=== PATIENT | male | born 1995 | race Caucasian/White ===

== ENCOUNTER 2023-07-16 19:04 | Emergency (ER) | payer SELFPAY ==
[2023-07-16 19:15] VITALS: BMI 24.7
[2023-07-16] MEDS ORDERED: ACETAMINOPHEN 500 MG TABLET (FP) PO ONE (20:13)
[2023-07-16] MEDS ORDERED: ACETAMINOPHEN 500 MG TABLET (FP) ONE (20:28)
[2023-07-16 20:59] LABS: BASO % 0.9 % (0-2.0); HEMOGLOBIN 15.3 GM/dL (11.7-16.9); LYMPH % 27.2 % (8-40); MCH 29.6 pg (25.7-33.7); MCHC 34.1 g/dl (32.0-35.9); MEAN CELL VOLUME 86.9 fl (80-96); MEAN PLT VOLUME 8.1 fl (7.5-11.1); MONO % 8.5 % (3.8-10.2); NEUT % 61.4 % (42.8-82.8); PLATELET COUNT 274 10^3/uL (134-434); RBC 5.19 M/mm3 (4.00-5.60); RDW 13.5 % (11.9-15.9); WHITE BLOOD COUNT 5.9 K/mm3 (4.0-10.0)
[2023-07-16 21:08] LABS: POTASSIUM 5.2 mmol/L (3.5-5.1)
[2023-07-16 21:10] LABS: CALCIUM 8.8 mg/dL (8.5-10.1)
[2023-07-16 21:11] LABS: ALBUMIN 4.1 g/dl (3.4-5.0); BLOOD UREA NITROGEN 23.4 mg/dL (7-18)
[2023-07-16 21:14] LABS: CREATININE 0.9 mg/dL (0.55-1.3)
[2023-07-16 21:16] LABS: BILIRUBIN,TOTAL 0.6 mg/dL (0.2-1); TOT PROT 7.5 g/dl (6.4-8.2)
[2023-07-16 23:48] VITALS: BP 112/73; PULSE 60; RESP 15; TEMP 97.8
== END 2023-07-17 00:04 | disposition home or self-care (01) ==
LOC: JER 19:04
DX: R07.89 Other chest pain (principal)
CPT/HCPCS: 36415; 71046-TC-FY; 71275-TC; 80053; 84484; 85025; 93005; 93010; 99285-25; Q9967